=== PATIENT | male | born 1940 | race Caucasian/White ===

== ENCOUNTER → 2016-12-18 | Outpatient (CLI) | payer MEDICARE ==
[~2016-12-18] MED LIST: AMLO10TA2 PO; ASPI-586 PO; OMEG1CAP13 PO; OMEP40CA36 PO; POLY17PO6 PO
--- NOTE | 2016-12-18 17:59 | Diagnostic Imaging Report ---
EXAMINATION: Supine abdomen at 2:31 p.m. INDICATION: Right-sided pain. FINDINGS: The prior exam of 09/21/2015 suggested a 4 mm calcification overlying the right renal contour. On this exam, that finding is difficult to visualize as the right kidney is obscured by bowel gas and fecal material. The left kidney is also difficult to assess due to bowel gas and fecal material. The 4 mm calcification along the pelvis on the left seen previously is again visualized and no different. I suspect this is a phlebolith. The remainder of the abdomen and pelvis is no different. There is no acute abnormality identified. IMPRESSION: 1. The suspected calcification within the right kidney seen previously is difficult to appreciate on this exam. If further study is desired, then CT would be recommended. 2. The overall appearance of the abdomen and pelvis has not changed significantly otherwise. Dictated by: Dictated on workstation # [id number]
== END ==
LOC: RAD 14:01
PROVIDERS: ATTEND Urology
DX: R10.31 Right lower quadrant pain (principal)
CPT/HCPCS: 74000